=== PATIENT | female | born 1935 | race Caucasian/White ===

== ENCOUNTER → 2022-10-24 | Outpatient (CLI) | payer OTHER, SELFPAY ==
[2022-10-24 17:12] LABS: Mucous, Urine 0 SEEN /hpf (<or=2+); Red Blood Cells-Urine 0 SEEN /hpf (0-5)
[2022-10-24 17:40] LABS: Color, Urine Yellow (Yellow); Glucose, Dipstick Normal (Normal); Ketone-Dipstick Negative (Negative); Leukocyte Esterase-Dipstick 500 /ul (Negative); Nitrite-Dipstick Positive (Negative); Occult Blood-Urine 25 /ul (Negative); Protein-Dipstick 15 mg/dl (Negative); Urine Bilirubin Dipstick Negative (Negative); Urine Clarity Sl. Cloudy (Clear); Urine Urobilinogen Normal (Normal); Urine pH 6.5 (5.0 - 8.0)
[2022-10-24 17:52] LABS: Bacteria 2+ /hpf (None Seen); Squamous Epithelial Cells - UA 0-5 SEEN /hpf (5-10); White Blood Cells 5-10 SEEN /hpf (0-5)
== END | disposition home or self-care (01) ==
LOC: LABSPEC 16:23
PROVIDERS: Visit Provider Physician Assistant Surgical
DX: R30.0 Dysuria (principal)
CPT/HCPCS: 81001; 87077; 87086; 87088; 87186

== ENCOUNTER → 2023-11-20 | Outpatient (CLI) | payer MEDICARE, SELFPAY | END | disposition home or self-care (01) | PROVIDERS: Visit Provider Physician Assistant | DX: N39.0 Urinary tract infection, site not specified (principal) | CPT/HCPCS: 87086; 87088 ==

== ENCOUNTER → 2024-01-03 | Outpatient (CLI) | payer MEDICARE, SELFPAY ==
--- NOTE | 2024-01-03 12:56 | US_ITS ---
HISTORY: Urinary tract infection, site not specified. TECHNIQUE: [place] scale and color doppler images were obtained of the kidneys. 73 images. COMPARISON: None. FINDINGS: RIGHT KIDNEY: 10.3 cm in length with a cortical thickness of 8 mm. Contour and echogenicity unremarkable. No hydronephrosis. No gross renal mass demonstrated. LEFT KIDNEY: 9.9 cm in length with a cortical thickness of 11 mm. Contour and echogenicity unremarkable. No hydronephrosis. No gross renal mass demonstrated. URINARY BLADDER: Partially distended at 115 cc with a 3 mm wall thickness. 15 mm post void residual. 3.9 x 5.9 x 6 cm cystic structure posterior to the bladder in the left pelvis. US/Kidney and Bladder IMPRESSION: Unremarkable examination of the kidneys. Minimal post void residual in the urinary bladder. 6 cm cystic lesion in the left pelvis, uncertain etiology. Consider follow-up or CT correlation. Electronically Signed: Lisa Junior MD at 13:30 EDT ,
== END | disposition home or self-care (01) ==
PROVIDERS: PCP Family Medicine; Referring Provider Urology; Visit Provider Urology
DX: N39.0 Urinary tract infection, site not specified (principal)
CPT/HCPCS: 76770

== ENCOUNTER → 2024-01-10 | Outpatient (CLI) | payer MEDICARE, SELFPAY ==
[2024-01-10 16:11] LABS: Anion Gap 6 (5-15); BUN 14 mg/dL (7-18); BUN/Creat Ratio 16.4 RATIO (10-20); Calcium,Total 9.5 mg/dL (8.5-10.1); Chloride 104 mmol/L (98-107); Creatinine, Serum 0.85 mg/dL (0.55-1.02); EST Glomerular Filtration Rate 67 mL/min (>60); Est Glom Filt Rate - Afr Amer 81 mL/min (>60); Glucose 125 mg/dL (74-106); Potassium 3.9 mmol/L (3.5-5.1); Sodium Level 138 mmol/L (136-145)
== END | disposition home or self-care (01) ==
LOC: MTLAB 13:14
PROVIDERS: PCP Family Medicine; Referring Provider Urology; Visit Provider Urology
DX: R93.89 Abnormal findings on diagnostic imaging of other specified body structures (principal)
CPT/HCPCS: 36415; 80048

== ENCOUNTER → 2024-02-06 | Outpatient (CLI) | payer MEDICARE, SELFPAY ==
--- NOTE | 2024-02-06 12:52 | CT_ITS ---
STUDY: CT ABDOMEN AND PELVIS WITH AND WITHOUT CONTRAST REASON FOR EXAM: Female, 88 years old. Recurring UTIs. RADIATION DOSAGE (If Supplied By Facility): CTDIvol = ( 25.55 ) mGy, DLP = ( 3346.62 ) mGycm TECHNIQUE: Transaxial images were obtained from the dome of the diaphragm to the symphysis pubis without oral contrast. IV 100mL Isovue-300 was administered. Sagittal and coronal images were reconstructed. Individualized dose optimization techniques were used for this CT. COMPARISON: Comparison is made with prior sonogram of the kidneys dated January 03, 2024. FINDINGS: The visualized lung bases are unremarkable. Coronary artery calcification. There is decreased attenuation of the liver consistent with steatosis. There is a 1.1 cm cyst in the inferior aspect of the right lobe of the liver. Dilated common bile duct. It tapers to 6.4 mm at the level of the second portion of the duodenum. Normal spleen. Normal pancreas. Normal bilateral adrenal glands. 1 cm cyst in the inferior medial aspect of the right kidney. Normal left kidney. Normal visualized stomach. Normal small intestine. There are multiple colonic diverticula consistent with diverticulosis. There is non-visualization of the appendix. There is diffuse atherosclerotic calcification of the abdominal aorta, without a demonstrated aneurysm. Normal inferior vena cava. Normal retroperitoneum. The urinary bladder is only partially filled. There is a 4.9 cm x 5.9 cm cyst in the left adnexa. The patient is status post hysterectomy. Normal abdominal wall. There are degenerative changes of the visualized lumbar spine. CT/CT Abd/Pelvis W/WO Contrast IMPRESSION: 4.9 cm x 5.9 semi a cyst in the left adnexa. Dilated common bile duct. Fatty infiltration of the liver. Electronically Signed: Addy Foote MD at 14:08 EDT ,
== END | disposition home or self-care (01) ==
PROVIDERS: PCP Family Medicine; Referring Provider Urology; Visit Provider Urology
DX: R93.89 Abnormal findings on diagnostic imaging of other specified body structures (principal)
CPT/HCPCS: 74178; Q9967

== ENCOUNTER → 2024-02-18 | Outpatient (CLI) | payer MEDICARE, SELFPAY | END | disposition home or self-care (01) | LOC: LABSPEC 15:01 | PROVIDERS: PCP Family Medicine; Referring Provider Nurse Practitioner Family; Visit Provider Nurse Practitioner Family | DX: R30.0 Dysuria (principal) | CPT/HCPCS: 87077; 87086; 87088; 87186 ==

== ENCOUNTER → 2025-03-01 | Outpatient (CLI) | payer MEDICARE, SELFPAY | END | disposition home or self-care (01) | LOC: LABSPEC 16:16 | PROVIDERS: PCP Family Medicine; Visit Provider Physician Assistant | DX: R35.0 Frequency of micturition (principal) | CPT/HCPCS: 87077; 87086; 87088; 87186 ==